=== PATIENT | male | born 1990 | race Two or more races ===

== ENCOUNTER 2020-07-30 01:34 | Inpatient (IN) | payer MEDICAID ==
[~2020-07-30] VITALS: Ht 182.9 cm; Wt 90.6 kg
[2020-07-30] MEDS ORDERED: ONDANSETRON HCL 4 MG/2 ML VIAL IV ONE (05:00)
[2020-07-30] MEDS ORDERED: MORPHINE SULFATE 4 MG/ML SYR/VIAL IV ONE (05:00)
[2020-07-30] MEDS ORDERED: HYDROmorphone HCL 2 MG/ML VL IV ONE (05:15)
[2020-07-30] MEDS ORDERED: SODIUM CHLORIDE 0.9% 1,000 ML IV ONE (07:57)
[2020-07-30] MEDS ORDERED: MIDAZOLAM HCL 5 MG/ML-1ML VIAL IV ONE (08:00)
[2020-07-30] MEDS ORDERED: ETOMIDATE (2MG/ML) 20ML VIAL IV ONE (08:00)
[2020-07-30 09:27] LABS: Basophils # (auto) 0 10 ^3/uL (0-0.2); Basophils % (auto) 0.3 % (0.0-2.0); Eosinophils # (auto) 0 10 ^3/uL (0-0.8); Eosinophils % (auto) 0.1 % (0.0-7.0); Hemoglobin 14.2 g/dL (13.5-17.5); Lymphocytes # (auto) 1.8 10 ^3/uL (0.4-5.4); Lymphocytes % (auto) 12.5 % (10.0-50.0); Mean Corpuscular Hemoglobin 30.7 pg (28.0-32.0); Mean Corpuscular Hgb Conc. 33.1 g/dL (32.0-36.0); Mean Corpuscular Volume 92.5 fL (80.0-100.0); Monocytes # (auto) 1.1 10 ^3/uL (0-1.3); Monocytes % (auto) 7.8 % (0.0-12.0); Neutrophils # (auto) 11.4 10 ^3/uL (1.6-8.6); Neutrophils % (auto) 79.3 % (37.0-80.0); Nucleated Red Blood Cells % 0.1 %; Platelet Count (auto) 334 10^3/uL (140-450); Red Blood Cells 4.64 10^6/uL (4.5-5.90); Red Cell Distribution Width 13.3 % (11.8-14.3); White Blood Cell 14.4 10^3/uL (4.4-10.8)
[2020-07-30 09:38] LABS: Albumin 3.5 g/dL (3.4-5.0); Calcium 8.2 mg/dL (8.5-10.1); Magnesium 1.9 mg/dL (1.6-2.6); Potassium 3.7 mmol/L (3.5-5.1)
[2020-07-30 09:41] LABS: Partial Thromboplastin Time 25.9 sec (23.0-31.2)
[2020-07-30 09:49] LABS: BUN/Creatinine Ratio 8.1; Bilirubin, Total 0.5 mg/dL (0.2-1.0); Total Protein 6.7 g/dL (6.4-8.2)
[2020-07-30] MEDS ORDERED: SODIUM CHLORIDE 0.9% 1,000 ML IV SCH ×2 (10:03→14:40)
[2020-07-30] MEDS ORDERED: LORazepam 0.5 MG TAB PO PRN (10:15)
[2020-07-30] MEDS ORDERED: NITROGLYCERIN 0.4 MG SL TAB SL PRN (10:15)
[2020-07-30] MEDS ORDERED: cefTRIAXone 1GM/50ML D5W 50 ML IV ONE (10:15)
[2020-07-30] MEDS ORDERED: ACETAMINOPHEN 325 MG TAB PO PRN (10:15)
[2020-07-30] MEDS ORDERED: MORPHINE SULF INJ 2 MG/ML SYRINGE 1ML IV PRN (10:15)
[2020-07-30] MEDS ORDERED: ALUM & MAG HYDROX-SIMETH LIQ(MAALOX) 30 ML PO PRN (10:15)
[2020-07-30] MEDS ORDERED: ONDANSETRON HCL 4 MG/2 ML VIAL IV PRN (10:15)
[2020-07-30] MEDS ORDERED: VANCOMYCIN PER PHARMACY 0 MG IV SCH (10:15)
[2020-07-30] MEDS: HYDROcodone-ACET 5/325MG TAB PO PRN ×2 (10:50→19:55)
[2020-07-30 10:51] LABS: Cholesterol 190 mg/dL (< 200); Triglycerides 284 mg/dL (< 150)
[2020-07-30 10:53] LABS: HDL Cholesterol 34 mg/dL (40-59); LDL Cholesterol 127 mg/dL (< 100)
--- NOTE | 2020-07-30 11:05 | NUR ---
M/S admit from ER GUDELAI AYALA admitted to Telemetry unit after SBAR received. Patient oriented to Isamar gamino RN, unit, room, bed, and unit policies regarding patient care and visiting hours. Patient is on room air. Weighed by bedscale 90.4kg and encouraged to call for assistance prn. All questions and concerns addressed, patient verbalized understanding.
[2020-07-30 11:35] LABS: Amphetamine Screen, Urine NEGATIVE (NEGATIVE); Barbiturate Scree,Urine NEGATIVE (NEGATIVE); Benzodiazephine Screen, Urine NEGATIVE (NEGATIVE); Cannabinoid Screen, Urine POSITIVE (NEGATIVE); Cocaine Screen, Urine POSITIVE (NEGATIVE); Phencyclidine Screen, Urine NEGATIVE (NEGATIVE)
[2020-07-30 11:42] LABS: Opiate Scree,Urine NEGATIVE (NEGATIVE)
[2020-07-30 11:48] LABS: Urine Bacteria NONE SEEN /hpf (None Seen); Urine Blood Negative /uL (Negative); Urine Mucus FEW (None Seen); Urine Specific Gravity 1.019 (1.001-1.035); Urine WBC 1 /hpf (0 - 3)
[2020-07-30] MEDS: MORPHINE SULF INJ 2 MG/ML SYRINGE 1ML IV PRN ×3 (12:08→21:10)
[2020-07-30] MEDS: VANCOMYCIN 1GM/250ML 250 ML IV SCH ×2 (12:18→19:47)
[2020-07-30 12:46] VITALS: BP 152/99
[2020-07-30 17:00] VITALS: BP 147/94
--- NOTE | 2020-07-30 18:33 | NUR ---
Patient is currently resting in bed, appears comfortable and verbalized some relief from left hip pain.
--- NOTE | 2020-07-30 19:30 | NUR ---
Opening Shift Note Assumed care of patient, awake and alert. No S/S of distress/SOB noted. Instructed on POC and to call for assist PRN. Bed is in lowest locked position with bed rails up x2 and call light is within reach of the patient.
--- NOTE | 2020-07-30 20:40 | NUR ---
Patient wheeled down to radiology via bed for CT of left hip.
--- NOTE | 2020-07-30 21:30 | NUR ---
Patient arrived back on unit via bed from radiology. Patient tolerated well.
[2020-07-30 22:00] VITALS: BP 143/80
[2020-07-31] MEDS: VANCOMYCIN 1GM/250ML 250 ML IV SCH (03:38)
[2020-07-31] MEDS: MORPHINE SULF INJ 2 MG/ML SYRINGE 1ML IV PRN ×4 (05:10→22:36)
[2020-07-31 05:31] VITALS: BP_SYST 139; BP_SYST 91; BP_DIAS 58; BP_DIAS 82
[2020-07-31 06:00] LABS: Basophils # (auto) 0 10 ^3/uL (0-0.2); Basophils % (auto) 0.4 % (0.0-2.0); Eosinophils # (auto) 0.1 10 ^3/uL (0-0.8); Eosinophils % (auto) 1.1 % (0.0-7.0); Hematocrit 39.4 % (41.0-53.0); Hemoglobin 13.7 g/dL (13.5-17.5); Lymphocytes # (auto) 2.2 10 ^3/uL (0.4-5.4); Lymphocytes % (auto) 19.7 % (10.0-50.0); Mean Corpuscular Hemoglobin 31.7 pg (28.0-32.0); Mean Corpuscular Hgb Conc. 34.7 g/dL (32.0-36.0); Mean Corpuscular Volume 91.2 fL (80.0-100.0); Monocytes # (auto) 1.3 10 ^3/uL (0-1.3); Monocytes % (auto) 11.6 % (0.0-12.0); Neutrophils # (auto) 7.5 10 ^3/uL (1.6-8.6); Neutrophils % (auto) 67.2 % (37.0-80.0); Nucleated Red Blood Cells % 0.1 %; Platelet Count (auto) 294 10^3/uL (140-450); Red Blood Cells 4.33 10^6/uL (4.5-5.90); Red Cell Distribution Width 12.8 % (11.8-14.3); White Blood Cell 11.2 10^3/uL (4.4-10.8)
--- NOTE | 2020-07-31 08:15 | NUR ---
Opening Shift Note Assumed care of patient, awake and alert. No S/S of distress/SOB or pain. Instructed on POC and to call for assistance PRN bed is at lowest position bed rails up x2 , will continue to monitor for changes Q1hr and PRN.
[2020-07-31 09:00] VITALS: BP 141/79
[2020-07-31] MEDS: cefTRIAXone 1GM/50ML D5W 50 ML IV SCH (10:00)
[2020-07-31 12:43] VITALS: BP 138/108
[2020-07-31 17:00] VITALS: BP 141/95
--- NOTE | 2020-07-31 19:30 | NUR ---
Opening Shift Note Assumed care of patient, awake and alert. No S/S of distress/SOB noted. Instructed on POC and to call for assist PRN. Bed is in lowest locked position with bed rails up x2 and call light is within reach of the patient. Crutches at the bedside.
[2020-07-31 22:00] VITALS: BP 142/79
[2020-08-01 05:13] VITALS: BP 136/70
[2020-08-01] MEDS: MORPHINE SULF INJ 2 MG/ML SYRINGE 1ML IV PRN ×2 (05:18→11:46)
[2020-08-01 09:00] VITALS: BP 145/84
[2020-08-01] MEDS: cefTRIAXone 1GM/50ML D5W 50 ML IV SCH (10:55)
[2020-08-01 13:00] VITALS: BP 122/75
[2020-08-01 13:16] LABS: Basophils # (auto) 0 10 ^3/uL (0-0.2); Basophils % (auto) 0.4 % (0.0-2.0); Eosinophils # (auto) 0.2 10 ^3/uL (0-0.8); Eosinophils % (auto) 1.3 % (0.0-7.0); Hemoglobin 13.5 g/dL (13.5-17.5); Lymphocytes # (auto) 2.1 10 ^3/uL (0.4-5.4); Lymphocytes % (auto) 17.4 % (10.0-50.0); Mean Corpuscular Hemoglobin 31.3 pg (28.0-32.0); Mean Corpuscular Hgb Conc. 33.9 g/dL (32.0-36.0); Mean Corpuscular Volume 92.3 fL (80.0-100.0); Neutrophils # (auto) 8.7 10 ^3/uL (1.6-8.6); Neutrophils % (auto) 72.9 % (37.0-80.0); Platelet Count (auto) 328 10^3/uL (140-450); Red Blood Cells 4.33 10^6/uL (4.5-5.90); Red Cell Distribution Width 12.8 % (11.8-14.3); White Blood Cell 11.9 10^3/uL (4.4-10.8)
[2020-08-01 13:30] LABS: BUN/Creatinine Ratio 12.2; Calcium 8.8 mg/dL (8.5-10.1)
--- NOTE | 2020-08-01 13:41 | NUR ---
PAGED DR [place] REGARDING LAB RESULTS FOR PENDING DISCHARGE.
--- NOTE | 2020-08-01 15:00 | NUR ---
DISCHARGE HOME Discharge instructions given as ordered. Encourage to follow up with DISCHARGE CLINIC as instructed. All questions and concerns addressed. Patient verbalized understanding. Medication reconciliation form completed and copy given to patient. IV removed with catheter intact, pressure dressing applied. Patient taken to vehicle via wheelchair with all personal belongings, accompanied by staff. No distress noted at time of departure.
== END 2020-08-01 15:00 | disposition home or self-care (01) | DRG 351 ==
LOC: ER 01:39 → EDBD 01:40 → OVERFLOW 01:40 → WEST WING 11:08
PROVIDERS: ADMIT Hospitalist; ATTEND Internal Medicine Nephrology
PROC: 0SSBXZZ Reposition Left Hip Joint, External Approach (ICD-10-PCS; principal; 2020-07-30)
DX: M24.452 Recurrent dislocation, left hip (principal); R65.10 Systemic inflammatory response syndrome (SIRS) of non-infectious origin without acute organ dysfunction; M25.00 Hemarthrosis, unspecified joint; I10 Essential (primary) hypertension; R26.2 Difficulty in walking, not elsewhere classified; W19.XXXA Unspecified fall, initial encounter; M43.10 Spondylolisthesis, site unspecified
CPT/HCPCS: 27250; 36415; 72192; 73501; 73700; 80048; 80053; 80061; 80202; 80307; 81001; 82565; 83036; 83735; 85025; 85610; 85652; 85730; 86141; 87040; 87086; 94762; 97116; 97163; 99152; G0378; J0696; J2250; J2405